=== PATIENT | male | born 1990 ===

== ENCOUNTER 2020-11-15 00:11 | Emergency (ER) | payer MEDICAID ==
[~2020-11-15] VITALS: Ht 177.8 cm; Wt 72.7 kg
[2020-11-15 00:13] VITALS: BP 152/88
== END 2020-11-15 00:30 | disposition left against medical advice (07) ==
LOC: EMS 00:11 → EDBD 00:11 → EMS 00:30
DX: H57.12 Ocular pain, left eye (principal); Z53.21 Procedure and treatment not carried out due to patient leaving prior to being seen by health care provider

== ENCOUNTER 2024-10-18 07:10 | Inpatient (IN) | payer MEDICAID, OTHER ==
[~2024-10-18] VITALS: Ht 175.3 cm; Wt 81.8 kg
[2024-10-18] MEDS: LORazepam 2 MG/ML VIAL IVP ONE ×2 (08:13→08:14)
[2024-10-18 08:16] LABS: EOSINOPHILS % (AUTO) 0.1 % (1.0-6.0); HEMATOCRIT 32.5 % (41-53); HEMOGLOBIN 10.9 g/dL (13.5-17.5); LYMPHOCYTES # (AUTO) 1.8 K/uL (1.0-4.8); LYMPHOCYTES % (AUTO) 35.7 % (22.0-44.0); MEAN CORPUSCULAR HEMOGLOBIN 32.2 pg (26.0-34.0); MEAN CORPUSCULAR HGB CONC 33.5 G/dL (31.0-37.0); MEAN CORPUSCULAR VOLUME 96 fL (80-100); MONOCYTES # (AUTO) 0.4 K/uL (0.1-1.0); MONOCYTES % (AUTO) 7.4 % (2.0-9.0); NEUTROPHILS # (AUTO) 2.8 K/uL (1.8-7.7); NEUTROPHILS % (AUTO) 55.8 % (40.0-70.0); PLATELET COUNT (AUTO) 106 K/uL (150-450); RED BLOOD CELL COUNT(AUTO) 3.38 MIL/uL (4.50-5.90); RED CELL DISTRIBUTION WIDTH 19.3 % (11.5-14.5); WHITE BLOOD COUNT (AUTO) 5.1 K/uL (4.5-11.0)
[2024-10-18 08:26] LABS: ANION GAP 23 mmol/L (8-16); CALCIUM, TOTAL 8.5 mg/dL (8.8-10.5); CARBON DIOXIDE 21 mmol/L (22-29); CHLORIDE 100 mmol/L (98-107); CREATININE 0.84 mg/dL (0.60-1.30); GLOMERULAR FILTR. RATE CALC > 60 mL/min (>60); GLUCOSE,RANDOM 161 mg/dL (70-110); SODIUM SERUM 144 mmol/L (136-145); UREA NITROGEN, BLOOD 6 mg/dL (7-18)
[2024-10-18] MEDS: ChlordiazePOXIDE HCL 25 MG CAPSULE PO ONE (09:09)
[2024-10-18 09:18] LABS: ALBUMIN 3.4 g/dL (3.4-5.0); BILIRUBIN,DIRECT 0.6 mg/dL (0.00-0.20); TOTAL PROTEIN, SERUM 7.2 g/dL (6.4-8.2)
[2024-10-18] MEDS: POTASSIUM CHLORIDE 40 MEQ in SODIUM CHLORIDE 0.9% 1,000 ML IV ONE (09:48)
[2024-10-18 10:32] LABS: PH,URINE DRUG SCREEN 5.5 (5.0-8.0)
[2024-10-18] MEDS: LORazepam 1 MG TABLET PO ONE (10:36)
[2024-10-18 10:39] LABS: ALCOHOL, URINE DRUG SCREEN NEGATIVE (NEGATIVE); AMPHET/METH SCREEN,URINE NEGATIVE (NEGATIVE); BENZODIAZEPINES SCREEN,URINE NEGATIVE (NEGATIVE); CANNABINOID SCREEN,URINE POSITIVE (NEGATIVE); COCAINE SCREEN,URINE NEGATIVE (NEGATIVE); METHADONE SCREEN, URINE NEGATIVE (NEGATIVE); OPIATE SCREEN,URINE NEGATIVE (NEGATIVE); PHENCYCLIDINE SCREEN,URINE NEGATIVE (NEGATIVE)
[2024-10-18 10:48] LABS: BARBITURATE SCREEN, URINE NEGATIVE (NEGATIVE)
[2024-10-18] MEDS: ONDANSETRON HCL 4 MG/2 ML VIAL IVP ONE (11:32)
[2024-10-18] MEDS ORDERED: LORazepam 2 MG/ML VIAL IM PRN (12:15)
[2024-10-18] MEDS ORDERED: ChlordiazePOXIDE HCL 25 MG CAPSULE PO PRN (12:15)
[2024-10-18] MEDS: 1: MAGNESIUM SULFATE 2 GM, MVI, ADULT NO.1 WITH VIT K 10 ML, THIAMINE 100 MG, FOLIC ACID IV SCH (12:51)
[2024-10-18 21:56] VITALS: BP 135/82; PULSE 63; RESP 20; TEMP 98.7; O2SAT 99
[2024-10-19 01:00] VITALS: BP 125/74; PULSE 68; RESP 19; TEMP 98.4; O2SAT 98
[2024-10-19 04:00] VITALS: BP 137/94; PULSE 71; RESP 20; TEMP 98.3; O2SAT 100
[2024-10-19 06:28] LABS: BASOPHILS % (AUTO) 0.3 % (0.0-2.0); EOSINOPHILS % (AUTO) 0 % (1.0-6.0); HEMATOCRIT 28.1 % (41-53); HEMOGLOBIN 9.5 g/dL (13.5-17.5); LYMPHOCYTES # (AUTO) 1.1 K/uL (1.0-4.8); LYMPHOCYTES % (AUTO) 23.5 % (22.0-44.0); MEAN CORPUSCULAR HEMOGLOBIN 32.5 pg (26.0-34.0); MEAN CORPUSCULAR HGB CONC 33.7 G/dL (31.0-37.0); MEAN CORPUSCULAR VOLUME 96 fL (80-100); MONOCYTES # (AUTO) 0.5 K/uL (0.1-1.0); MONOCYTES % (AUTO) 11.1 % (2.0-9.0); NEUTROPHILS # (AUTO) 3.1 K/uL (1.8-7.7); NEUTROPHILS % (AUTO) 65.1 % (40.0-70.0); PLATELET COUNT (AUTO) 81 K/uL (150-450); RED BLOOD CELL COUNT(AUTO) 2.92 MIL/uL (4.50-5.90); RED CELL DISTRIBUTION WIDTH 20.2 % (11.5-14.5); WHITE BLOOD COUNT (AUTO) 4.8 K/uL (4.5-11.0)
[2024-10-19] MEDS ORDERED: ChlordiazePOXIDE HCL 25 MG CAPSULE PO PRN (07:00)
[2024-10-19 07:52] LABS: ANION GAP 9 mmol/L (8-16); CALCIUM, TOTAL 8.6 mg/dL (8.8-10.5); CARBON DIOXIDE 30 mmol/L (22-29); CHLORIDE 99 mmol/L (98-107); CREATININE 0.71 mg/dL (0.60-1.30); GLOMERULAR FILTR. RATE CALC > 60 mL/min (>60); GLUCOSE,RANDOM 66 mg/dL (70-110); POTASSIUM 3.6 mmol/L (3.5-5.1); SODIUM SERUM 138 mmol/L (136-145); UREA NITROGEN, BLOOD 5 mg/dL (7-18)
[2024-10-19] MEDS: ChlordiazePOXIDE HCL 25 MG CAPSULE PO SCH (08:15)
[2024-10-19 08:42] VITALS: BP 130/97; PULSE 72; RESP 18; TEMP 98.6; O2SAT 98
[2024-10-19 11:21] VITALS: BP 142/98; PULSE 66; RESP 18; TEMP 99.1; O2SAT 97
[2024-10-19 13:47] VITALS: BP 142/98; PULSE 66; RESP 18; TEMP 99.1; O2SAT 97
[2024-10-19] MEDS ORDERED: NICOTINE POLACRILEX 2 MG LOZENGE PO PRN (15:15)
[2024-10-19 15:35] VITALS: BP 134/90; PULSE 70; RESP 18; TEMP 98.8; O2SAT 96
[2024-10-21] MEDS ORDERED: ChlordiazePOXIDE HCL 10 MG CAPSULE PO PRN (07:00)
[2024-10-21] MEDS ORDERED: ChlordiazePOXIDE HCL 10 MG CAPSULE PO SCH (09:00)
[2024-10-22] MEDS ORDERED: ChlordiazePOXIDE HCL 10 MG CAPSULE PO PRN (07:00)
== END 2024-10-19 15:30 | disposition left against medical advice (07) | DRG 53 ==
LOC: EMS 07:15 → EDH 11:25 → 5S 20:39
PROVIDERS: ADMIT Internal Medicine; ATTEND Internal Medicine
DX: G40.89 Other seizures (principal); D64.9 Anemia, unspecified; E87.6 Hypokalemia; R73.9 Hyperglycemia, unspecified; F17.200 Nicotine dependence, unspecified, uncomplicated; F10.939 Alcohol use, unspecified with withdrawal, unspecified; Y90.1 Blood alcohol level of 20-39 mg/100 ml; F12.90 Cannabis use, unspecified, uncomplicated; Z91.018 Allergy to other foods; Z71.6 Tobacco abuse counseling; Z71.41 Alcohol abuse counseling and surveillance of alcoholic
CPT/HCPCS: 70450; 71045; 80048; 80076; 80307; 85025; 99285; G0480; J2060; J2405; J3411; J3475; J3480; J3490; J7030; 36415-L1; 36415-TC